=== PATIENT | female | born 1980 | race Hispanic/Latino ===

== ENCOUNTER 2016-06-28 22:11 | Emergency (ER) | payer SELFPAY ==
[2016-06-28] MEDS ORDERED: Lorazepam 2 MG/ML VIAL ONE (22:22)
[2016-06-28 22:43] LABS: #Basophils 0.1 thou/uL (0.0-0.2); #Eosinphils 0.1 thou/uL (0.0-0.7); #Lymphocytes 1.9 thou/uL (1.20-3.40); #Monocytes 0.6 thou/uL (0.11-0.59); #Neutrophils 8.4 thou/uL (1.40-6.50); %Basophils 1.3 % (0.0-1.0); %Eosinophils 1.3 % (0.0-10.0); %Monocytes 5.2 % (0.0-10.0); Hematocrit 36.8 % (36.0-47.0); Mean Platelet Volume 7.8 fL (7.4-10.4); Red Blood Cell (RBC) Count 4.11 mill/uL (4.20-5.40); White Blood Cell (WBC) Count 11.1 thou/uL (4.8-10.8)
[2016-06-28 22:55] LABS: ALT (SGPT) 8 U/L (0-55); AST (SGOT) 10 U/L (5-34); Alkaline Phosphatase 74 U/L (40-150); Anion Gap 12 mmol/L (10-20); BUN (Urea Nitrogen) 14 mg/dL (7.0-18.7); Bilirubin, Total 0.4 mg/dL (0.2-1.2); Calc. Creatinine Clearance 0 mL/min (70-130); Calcium 9.4 mg/dL (7.8-10.44); Carbon Dioxide 19 mmol/L (22-29); Chloride 112 mmol/L (98-107); Estimated GFR-MDRD Greater than 90; Globulin 3.1 g/dL (2.4-3.5)
[2016-06-28 23:01] LABS: Troponin I Less than 0.010 ng/mL (< 0.028)
--- NOTE | 2016-06-28 23:22 | PICIS ---
[facility] EMERGENCY RECORD ADMIN MERGE: Ambulance WedJun 28, 2016 22:00. (23:26 BGAL) TRIAGE ([place] Jun 28, 2016 22:16 EMAT) PATIENT: NAME: Cielo Chambers, AGE: 35, GENDER: female, : Wed1980, TIME OF GREET: [place] Jun 28, 2016 22:11, PREFERRED LANGUAGE: Romanian, ETHNICITY: or , ECODE BILLING MAP: [facility], Zip Code: [address], PHONE: , , , PERSON ID: [id number], PAYMENT: [employer] Self Pay, PCP: COMPA Alvarado Kimberly. ([place] Jun 28, 2016 22:16 EMAT) KG WEIGHT: 54.4 (est.). (22:38 EMAT) COMPLAINT: anxiety, chest pain. (22:38 EMAT) ADMISSION: URGENCY: 3 Urgent, ADMISSION SOURCE: Home, TRANSPORT: AMBULANCE - [facility], BED: TRIAGE. ([place] Jun 28, 2016 22:16 EMAT) ASSESSMENT: Assessment: "panic attack" per EMS as relayed by daughter, Additional Triage notes: EMS gave 1 spray nitro, 324 mg ASA, 2mg versed, CHANNEL LIP WETTER. (22:20 EMAT) PAIN: Patient complains of pain described as, Location mid chest, Pain is intermittent. (22:20 EMAT) SIRS SCORING: Heart Rate 55-109 (0), Temp range 96.8-101.1 (0), respiratory rate 12-24 (0), respiratory rate 25-34 (1), Mental Status altered: no (0), Total SIRS Score 0, Infection or Suspected Infection: No. (22:20 EMAT) TRIAGE SCREENING: Patient denies suicidal ideation, Patient denies presence of domestic violence. (22:38 EMAT) LMP: Last menstrual period: 06/07/2016. (22:39 EMAT) PROVIDERS: TRIAGE NURSE: Brett Lowry RN. ([place] Jun 28, 2016 22:16 EMAT) VITAL SIGNS: BP 125/62, Pulse 89, Resp 28, (Non-Labored), Temp 98.1, (Oral), Pain 5, O2 Sat 99, on Room Air, Time 06/28/2016 22:13. (22:13 EMAT) PREVIOUS VISIT ALLERGIES: No Known Drug Allergies. (WedJun 28, 2016 22:16 EMAT) No Known Drug Allergies. (22:20 EMAT) KNOWN ALLERGIES No Known Drug Allergies CURRENT MEDICATIONS (22:16 EMAT) None VITAL SIGNS VITAL SIGNS: BP: 125/62, Pulse: 89, Resp: 28 (Non-Labored), Temp: 98.1 (Oral), Pain: 5, O2 sat: 99 on Room Air, Time: 06/28/2016 22:13. (22:13 EMAT) BP: 136/83, Pulse: 96, Resp: 30, Pain: 2, O2 sat: 99 on Room Air, Time: 06/28/2016 22:36. (22:36 EMAT) NURSING ASSESSMENT: FOCUSED (22:32 EMAT) &a-1R&a+25V*p+0X*[id number]*c202B*c15G*c2P*p-0X&a-25V&a+1R Name: Cielo Chambers : 1980 F35 MedRec: [id number] AcctNum: [id number] Prepared: WedJun 29, 2016 00:01 by Interface Page 1 of 7 pMD [facility] EMERGENCY RECORD CONSTITUTIONAL: Patient arrives, via stretcher, via [facility], History obtained from, Emergency Medical Services, machine shop specialist: ANDREIA Carnes, Patient appears, anxious, Patient cooperative, Patient alert, Oriented to person, place and time, Skin warm, Skin dry, Skin normal in color, Mucous membranes pink, Mucous membranes moist, Patient is well-groomed, Patient complains of Anxiety. PAIN: aching pain, mid chest, Pain exacerbated by, Hyperventilation. EYES: Focused eye assessment finding include pupils equally round and reactive to light. NEURO: Focused neuro assessment findings include patient alert, cooperative, No facial droop noted, Speech coherent, No loss of consciousness. GCS: Eye opening: (4) - Spontaneous, Verbal: (5) - Oriented/conversive, Motor: (6) - Obeys commands/Spontaneous, GCS Total: 15. RESPIRATORY: Focused respiratory assessment findings include breath sounds clear, Notes: hyperventilating. ABDOMEN: Focused abdominal assessment findings include abdomen soft. GENITOURINARY FEMALE: Notes: deferred. MUSCULOSKELETAL: Focused musculoskeletal assessment findings include normal range of motion. LACERATION: Focused laceration assessment not applicable. NOTES: Emotional support needed and given. SAFETY: Side rails up, Cart/Stretcher in lowest position, Family at bedside, Call light within reach, Hospital ID band on. NURSING PROCEDURE: DISCHARGE NOTE (23:57 MVIL) DISCHARGE: Patient discharged to home, ambulating with assistance, driving self, accompanied by other family member, Summary of Care printed/ provided, Patient requested and was provided an electronic copy of Discharge Instructions, Transition record given to patient, Discharge instructions given to patient, Above person(s) verbalized understanding of discharge instructions and follow-up care. BELONGINGS: Belongings and valuables with patient at time of discharge include:. ORDER DETAILS Order Name: Cardiac Profile w/CKMB & Troponin - I, Status: Active, Time: 22:17 06/28/2016, User: ARIELLA, - Ordered for: MD Ashley Jason, - Entered by: MD Ashley Jason - Sun Jun 28, 2016 22:17, - Quantity: 1, Order Name: CBC with Differential, Status: Active, Time: 22:17 06/28/2016, User: ARIELLA, - Ordered for: MD Ashley Jason, &a-1R&a+25V*p+0X*i0633U*c202B*c15G*c2P*p-0X&a-25V&a+1R Name: Cielo Chambers : 1980 F35 MedRec: [id number] AcctNum: [id number] Prepared: WedJun 29, 2016 00:01 by Interface Page 2 of 7 pMD [facility] EMERGENCY RECORD - Entered by: MD Ashley Jason - Sun Jun 28, 2016 22:17, - Quantity: 1, Order Name: Comprehensive Metabolic Panel, Status: Active, Time: 22:17 06/28/2016, User: ARIELLA, - Ordered for: MD Ashley Jason, - Entered by: MD Ashley Jason - Sun Jun 28, 2016 22:17, - Quantity: 1, Order Name: EKG 12 Lead in Emergency Room, Status: Active, Time: 22:17 06/28/2016, User: ARIELLA, - Ordered for: MD Ashley Jason, - Entered by: MD Ashley Jason - Sun Jun 28, 2016 22:17, - Quantity: 1, Order Name: XR Chest 1 View Portable, Status: Active, Time: 22:17 06/28/2016, User: ARIELLA, - Ordered for: MD Ashley Jason, - Entered by: MD Ashley Jason - Sun Jun 28, 2016 22:17, - Quantity: 1. MEDICATION ADMINISTRATION SUMMARY Drug Name: Ativan injection, Dose Ordered: 0.5 mg, Route: IV Push, Status: Given, Time: 22:28 06/28/2016, Drug Name: *sodium chloride 0.9 % intravenous, Dose Ordered: 1 L, Route: IV Fluid Infusion, Status: Given, Time: 22:27 06/28/2016, *Additional information available in notes, Detailed record available in Medication Service section. MEDICATION SERVICE Ativan injection: Order: Ativan injection (lorazepam) - Dose: 0.5 mg : IV Push Ordered by: Yovany Ashley MD Entered by: MD Britni Arreola Jun 28, 2016 22:19 , Acknowledged by: ANDREIA Diaz Jun 28, 2016 22:27 Documented as given by: Brett Lowry RN [place] Jun 28, 2016 22:28 Patient, Medication, Dose, Route and Time verified prior to administration. Amount given: 0.5 mg, IV SITE #1 IVP, initial medication, Slowly, Slightly drowsey, easily aroused-acceptable, Catheter placement confirmed via flush prior to administration, IV site without signs or symptoms of infiltration during medication administration, No swelling during administration, No drainage during administration, IV flushed after administration, Correct patient, time, route, dose and medication confirmed prior to administration, Patient advised of actions and side-effects prior to administration, Allergies confirmed and medications reviewed prior to administration, Patient in position of comfort, Side rails up, Cart in lowest position, Family at bedside. : Follow Up : Response assessment performed, No signs or symptoms of allergic reaction noted, Decreased pain, Decreased symptoms, Decreased blood pressure, &a-1R&a+25V*p+0X*q6989L*c202B*c15G*c2P*p-0X&a-25V&a+1R Name: Cielo Chambers : 1980 F35 MedRec: [id number] AcctNum: [id number] Prepared: WedJun 29, 2016 00:01 by Interface Page 3 of 7 pMD [facility] EMERGENCY RECORD Decreased heart rate, _IV SITE #1:_. (23:00 MVIL) sodium chloride 0.9 % intravenous: Order: sodium chloride 0.9 % intravenous (0.9 % sodium chloride) - Dose: 1 L : IV Fluid Infusion Notes: (Bolus) Ordered by: Yovany Ashley MD Entered by: Yovany Ashley MD [place] Jun 28, 2016 22:20 , Acknowledged by: Brett Lowry RN [place] Jun 28, 2016 22:27 Documented as given by: Brett Lowry RN [place] Jun 28, 2016 22:27 Patient, Medication, Dose, Route and Time verified prior to administration. Amount given: 1000 ml, IV SITE #1 IV fluids established for hydration, IV SITE #1 into left antecubital, IV SITE #1 1st bag hung, amount 1 Liter hung, IV SITE #1 bolus of 1000 ml established, via primary tubing, Awake and alert- acceptable, Catheter placement confirmed via flush prior to administration, IV site without signs or symptoms of infiltration during medication administration, No swelling during administration, No drainage during administration, IV flushed after administration, Correct patient, time, route, dose and medication confirmed prior to administration, Patient advised of actions and side-effects prior to administration, Allergies confirmed and medications reviewed prior to administration, Patient in position of comfort, Side rails up, Cart in lowest position, Family at bedside. : Follow Up : Response assessment performed, No signs or symptoms of allergic reaction noted, Decreased symptoms, Decreased heart rate, Site inspection shows, No swelling at administration site, No drainage at administration site, No bleeding at site, No bruising noted at site, _IV SITE #1:_, IV fluid infusion discontinued, on WedJun 28, 2016 23:24, ., Total amount infused: 1000MLS, IV Discontinued with catheter intact. (23:24 MVIL) HPI ANXIETY (22:20 [facility]) CHIEF COMPLAINT: Patient presents for evaluation of anxiety, Patient presents for evaluation of shortness of breath, Patient presents for evaluation of chest pain. HISTORIAN: History provided by patient, 35F presents with complaints of anxiety, chest pain, and shortness of breath that have been present since 9pm. Patient states she has had multiple similar episodes in the past that she has not sought medical care for. Denies headache, fever, or chills. LOCATION: Symptoms are generalized. QUALITY: Patient is alert and oriented to person, place and time, [place] coma score is 15. TIME COURSE: Gradual onset of symptoms, There has been no change in the patient's symptoms over time. ROS CONSTITUTIONAL: Negative constitutional review of systems, Historian denies chills, denies fever. (22:21 JJA) &a-1R&a+25V*p+0X*w1289L*c202B*c15G*c2P*p-0X&a-25V&a+1R Name: Cielo Chambers : 1980 F35 MedRec: [id number] AcctNum: [id number] Prepared: WedJun 29, 2016 00:01 by Interface Page 4 of 7 pMD [facility] EMERGENCY RECORD EYES: Negative eye review of systems, Historian denies eye pain, denies vision changes. (22:21 JJAC) ENT: Negative ears, nose, throat review of systems, Historian denies rhinorrhea, denies sore throat, denies voice changes. (22:21 JJAC) CARDIOVASCULAR: Historian reports chest pain. (22:21 JJAC) RESPIRATORY: Historian reports shortness of breath. (22:21 JJAC) GI: Negative gastrointestinal review of systems, Historian denies abdominal pain, denies constipation, denies diarrhea, denies nausea, denies vomiting. (22:21 JJAC) GENITOURINARY FEMALE: Negative genitourinary review of systems, Historian denies dysuria, denies frequency. (22:21 JJAC) MUSCULOSKELETAL: Negative musculoskeletal review of systems, Historian denies back pain, denies fall, denies injury. (22:21 JJAC) SKIN: Negative skin review of systems, Historian denies rash, denies skin changes. (22:21 JJAC) NEUROLOGIC: Negative neurologic review of systems, Historian denies headache, denies mental status changes, denies paralysis, denies paresthesias, denies sensory changes. (22:21 JJAC) HEMO/LYMPHATIC: Normal hematologic/lymphatic system review, Historian denies abnormal blood clotting. (22:21 JJAC) ALLERGIC/IMMUNOLOGIC: Normal allergy/immunologic system review, Historian denies frequent infections. (22:21 JJAC) PSYCHIATRIC: Historian reports anxiety. (22:22 JJAC) PAST MEDICAL HISTORY (22:20 EMAT) MEDICAL HISTORY: Notes: ANEMIA, Flu vaccine not up to date, Tetanus not up to date, Pneumococcal vaccine not up to date. reviewed 06/28/16. FEMALE SURGICAL HISTORY: Patient has no surgical history. reviewed 06/28/16. SOCIAL HISTORY: Patient denies alcohol use, Patient denies drug use, Patient has no smoking history. reviewed 06/28/16. PHYSICAL EXAM (22:21 JJAC) CONSTITUTIONAL: Vital signs reviewed, Patient afebrile, Pulse normal, Blood pressure normal, Respiratory rate, increased, Patient appears non toxic, Patient appears pain free, Patient alert and oriented to person, place and time. HEAD: Head exam normal, Head exam included findings of head atraumatic, normocephalic. EYES: Eye exam normal, Eye exam included findings of eyelids normal to inspection, Pupils equally round and reactive to light, Extraocular muscles intact, no nystagmus. ENT: ENT exam normal, Ear exam normal, external ear normal, tympanic membranes normal, no bleeding, Pharynx exam normal, Uvula exam normal, Tonsil exam normal, Mouth exam normal, mucous membranes moist, teeth normal. &a-1R&a+25V*p+0X*p4566J*c202B*c15G*c2P*p-0X&a-25V&a+1R Name: Cielo Chambers : 1980 F35 MedRec: [id number] AcctNum: [id number] Prepared: WedJun 29, 2016 00:01 by Interface Page 5 of 7 pMD [facility] EMERGENCY RECORD NECK: Neck exam normal, Neck exam included findings of normal range of motion, Trachea midline, no meningeal signs, no cervical adenopathy, no tenderness. RESPIRATORY CHEST: Respiratory and chest exam normal, Respiratory exam included findings of no respiratory distress, Breath sounds clear. CARDIOVASCULAR: Cardiovascular assessment normal, Cardiovascular exam included findings of heart rate regular rate and rhythm, Heart sounds normal. ABDOMEN FEMALE: Abdominal exam included findings of abdomen nontender, Bowel sounds normal, no distension, no mass, no pulsatile masses, no peritoneal signs, no rigidity, no guarding, no rebound, Rovsing's sign absent. BACK: Back exam normal, Back exam included findings of normal inspection, range of motion normal, no tenderness. UPPER EXTREMITY: Upper extremity exam normal, Upper extremity exam included findings of inspection normal, Range of motion normal, Motor strength normal, Sensation intact, Radial pulse normal. LOWER EXTREMITY: Lower extremity exam normal, Lower extremity exam included findings of inspection normal, Range of motion normal, Motor strength normal, Sensation intact, Posterior tibial pulse normal, Pedal pulse normal. NEURO: Neuro exam normal, Neuro exam findings include patient oriented to person, place and time, Speech normal, Gait normal, Cranial nerves intact, no focal motor deficits, no focal sensory deficits. SKIN: Skin exam normal, Skin exam included findings of skin warm, dry, and normal in color, no rash. PSYCHIATRIC: Psychiatric exam included findings of patient oriented to person place and time, Affect, agitated, anxious, anxious, hyperventilating. EVENTS TRANSFER: Triage to Emergency Triage. ([place] Jun 28, 2016 22:16 EMAT) Emergency Triage to Emergency Room -04. (22:16 EMAT) Removed from Emergency Emergency Room -04. (23:58 MVIL) DOCTOR NOTES (23:07 [facility]) TEXT: Patient presented with findings consistent with panic/anxiety attack. Her spectrum of symptoms prompted workup for ACS or respiratory etiology, but lab and EKG findings have been reassuring. I believe her symptoms are all related to anxiety and as they are improving, she is appropriate for discharge home and outpatient management. PATIENT STATUS: Patient has improved since arrival to emergency department. PATIENT PLAN: The patient will be discharged. DATA REVIEWED: Lab data reviewed, Xray data reviewed, Reviewed &a-1R&a+25V*p+0X*j0655O*c202B*c15G*c2P*p-0X&a-25V&a+1R Name: Cielo Chambers : 1980 F35 MedRec: [id number] AcctNum: [id number] Prepared: WedJun 29, 2016 00:01 by Interface Page 6 of 7 pMD [facility] EMERGENCY RECORD EKG. PROBLEM LIST No recorded problems DIAGNOSIS (23:05 JJA) FINAL: PRIMARY: Anxiety. DISPOSITION PATIENT: Disposition Type: Discharge, Disposition: *Discharge Home. (23:05 JJA) Patient left the department. (23:58 MVIL) [facility] DISCHARGE: ANXIETY REACTION. FO[facility]UP[facility] [address] [address], . SPECIAL: Slow down your breathing. Get some rest. PRESCRIPTION No recorded prescriptions IMAGING *DISCHARGE INSTRUCTIONS RECEIPT: Image captured from scanner. (23:18 MVIL) *SUPPLY CHARGE SHEET: Image captured from scanner. (23:20 MVIL) *EKG: Image captured from scanner. (23:22 MVIL) ADMIN DIGITAL SIGNATURE: MD Ashley Jason. (23:09 [facility] [place]: BGAL=ANDREIA Hills, Veena EMAT=ANDREIA Lowry, Brett JJAC=MD Ashley Jason MVIL=ANDREIA Austin, Reyna &a-1R&a+25V*p+0X*j0839T*c202B*c15G*c2P*p-0X&a-25V&a+1R Name: Cielo Chambers : 1980 F35 MedRec: [id number] AcctNum: [id number] Prepared: WedJun 29, 2016 00:01 by Interface Page 7 of 7 pMD MTDD
--- NOTE | 2016-06-28 23:22 | ERRECORD ---
[facility] EMERGENCY RECORD ADMIN (23:26 BGAL) MERGE: Ambulance Sun Jun 28, 2016 22:00. HPI ANXIETY (22:20 JJAC) CHIEF COMPLAINT: Patient presents for evaluation of anxiety, Patient presents for evaluation of shortness of breath, Patient presents for evaluation of chest pain. HISTORIAN: History provided by patient, 35F presents with complaints of anxiety, chest pain, and shortness of breath that have been present since 9pm. Patient states she has had multiple similar episodes in the past that she has not sought medical care for. Denies headache, fever, or chills. LOCATION: Symptoms are generalized. QUALITY: Patient is alert and oriented to person, place and time, [place] coma score is 15. TIME COURSE: Gradual onset of symptoms, There has been no change in the patient's symptoms over time. ROS CONSTITUTIONAL: Negative constitutional review of systems, Historian denies chills, denies fever. (22:21 JJAC) EYES: Negative eye review of systems, Historian denies eye pain, denies vision changes. (22:21 JJAC) ENT: Negative ears, nose, throat review of systems, Historian denies rhinorrhea, denies sore throat, denies voice changes. (22:21 JJAC) CARDIOVASCULAR: Historian reports chest pain. (22:21 JJAC) RESPIRATORY: Historian reports shortness of breath. (22:21 JJAC) GI: Negative gastrointestinal review of systems, Historian denies abdominal pain, denies constipation, denies diarrhea, denies nausea, denies vomiting. (22:21 JJAC) GENITOURINARY FEMALE: Negative genitourinary review of systems, Historian denies dysuria, denies frequency. (22:21 JJAC) MUSCULOSKELETAL: Negative musculoskeletal review of systems, Historian denies back pain, denies fall, denies injury. (22:21 JJAC) SKIN: Negative skin review of systems, Historian denies rash, denies skin changes. (22:21 JJAC) NEUROLOGIC: Negative neurologic review of systems, Historian denies headache, denies mental status changes, denies paralysis, denies paresthesias, denies sensory changes. (22:21 JJAC) HEMO/LYMPHATIC: Normal hematologic/lymphatic system review, Historian denies abnormal blood clotting. (22:21 JJAC) ALLERGIC/IMMUNOLOGIC: Normal allergy/immunologic system review, Historian denies frequent infections. (22:21 JJA) PSYCHIATRIC: Historian reports anxiety. (22:22 JJA) PAST MEDICAL HISTORY (22:20 EMAT) MEDICAL HISTORY: Notes: ANEMIA, Flu vaccine not up to date, &a-1R&a+25V*p+0X*[id number]*c202B*c15G*c2P*p-0X&a-25V&a+1R Name: Cielo Chambers : 1980 F35 MedRec: [id number] AcctNum: [id number] Prepared: WedJun 29, 2016 00:01 by Interface Page 1 of 4 pMD [facility] EMERGENCY RECORD Tetanus not up to date, Pneumococcal vaccine not up to date. reviewed 06/28/16. FEMALE SURGICAL HISTORY: Patient has no surgical history. reviewed 06/28/16. SOCIAL HISTORY: Patient denies alcohol use, Patient denies drug use, Patient has no smoking history. reviewed 06/28/16. KNOWN ALLERGIES No Known Drug Allergies CURRENT MEDICATIONS (22:16 EMAT) None VITAL SIGNS VITAL SIGNS: BP: 125/62, Pulse: 89, Resp: 28 (Non-Labored), Temp: 98.1 (Oral), Pain: 5, O2 sat: 99 on Room Air, Time: 06/28/2016 22:13. (22:13 EMAT) BP: 136/83, Pulse: 96, Resp: 30, Pain: 2, O2 sat: 99 on Room Air, Time: 06/28/2016 22:36. (22:36 EMAT) PHYSICAL EXAM (22:21 JA) CONSTITUTIONAL: Vital signs reviewed, Patient afebrile, Pulse normal, Blood pressure normal, Respiratory rate, increased, Patient appears non toxic, Patient appears pain free, Patient alert and oriented to person, place and time. HEAD: Head exam normal, Head exam included findings of head atraumatic, normocephalic. EYES: Eye exam normal, Eye exam included findings of eyelids normal to inspection, Pupils equally round and reactive to light, Extraocular muscles intact, no nystagmus. ENT: ENT exam normal, Ear exam normal, external ear normal, tympanic membranes normal, no bleeding, Pharynx exam normal, Uvula exam normal, Tonsil exam normal, Mouth exam normal, mucous membranes moist, teeth normal. NECK: Neck exam normal, Neck exam included findings of normal range of motion, Trachea midline, no meningeal signs, no cervical adenopathy, no tenderness. RESPIRATORY CHEST: Respiratory and chest exam normal, Respiratory exam included findings of no respiratory distress, Breath sounds clear. CARDIOVASCULAR: Cardiovascular assessment normal, Cardiovascular exam included findings of heart rate regular rate and rhythm, Heart sounds normal. ABDOMEN FEMALE: Abdominal exam included findings of abdomen nontender, Bowel sounds normal, no distension, no mass, no pulsatile masses, no peritoneal signs, no rigidity, no guarding, no rebound, Rovsing's sign absent. BACK: Back exam normal, Back exam included findings of normal inspection, range of motion normal, no tenderness. UPPER EXTREMITY: Upper extremity exam normal, Upper extremity &a-1R&a+25V*p+0X*[id number]*c202B*c15G*c2P*p-0X&a-25V&a+1R Name: Cielo Chambers : 1980 F35 MedRec: [id number] AcctNum: [id number] Prepared: WedJun 29, 2016 00:01 by Interface Page 2 of 4 D [facility] EMERGENCY RECORD exam included findings of inspection normal, Range of motion normal, Motor strength normal, Sensation intact, Radial pulse normal. LOWER EXTREMITY: Lower extremity exam normal, Lower extremity exam included findings of inspection normal, Range of motion normal, Motor strength normal, Sensation intact, Posterior tibial pulse normal, Pedal pulse normal. NEURO: Neuro exam normal, Neuro exam findings include patient oriented to person, place and time, Speech normal, Gait normal, Cranial nerves intact, no focal motor deficits, no focal sensory deficits. SKIN: Skin exam normal, Skin exam included findings of skin warm, dry, and normal in color, no rash. PSYCHIATRIC: Psychiatric exam included findings of patient oriented to person place and time, Affect, agitated, anxious, anxious, hyperventilating. MEDICATION ADMINISTRATION SUMMARY Drug Name: Ativan injection, Dose Ordered: 0.5 mg, Route: IV Push, Status: Given, Time: 22:28 06/28/2016, Drug Name: *sodium chloride 0.9 % intravenous, Dose Ordered: 1 L, Route: IV Fluid Infusion, Status: Given, Time: 22:27 06/28/2016, *Additional information available in notes, Detailed record available in Medication Service section. DOCTOR NOTES (23:07 [facility]) TEXT: Patient presented with findings consistent with panic/anxiety attack. Her spectrum of symptoms prompted workup for ACS or respiratory etiology, but lab and EKG findings have been reassuring. I believe her symptoms are all related to anxiety and as they are improving, she is appropriate for discharge home and outpatient management. PATIENT STATUS: Patient has improved since arrival to emergency department. PATIENT PLAN: The patient will be discharged. DATA REVIEWED: Lab data reviewed, Xray data reviewed, Reviewed EKG. PROBLEM LIST No recorded problems DIAGNOSIS (23:05 [facility]) FINAL: PRIMARY: Anxiety. PRESCRIPTION No recorded prescriptions DISPOSITION PATIENT: Disposition Type: Discharge, Disposition: *Discharge &a-1R&a+25V*p+0X*[id number]*c202B*c15G*c2P*p-0X&a-25V&a+1R Name: Cielo Chambers : 1980 5 MedRec: [id number] AcctNum: [id number] Prepared: WedJun 29, 2016 00:01 by Interface Page 3 of 4 pMD [facility] EMERGENCY RECORD [facility]. (23:58 MVIL) [place]: BGAL=ANDREIA Hills, Veena SAHU=ANDREIA Lowry, Brett [facility] Gabi, Yovany MVIL=ANDREIA Austin, eRyna &a-1R&a+25V*p+0X*[id number]*c202B*c15G*c2P*p-0X&a-25V&a+1R Name: Cielo Chambers : 1980 F35 MedRec: [id number] AcctNum: [id number] Prepared: WedJun 29, 2016 00:01 by Interface Page 4 of 4 pMD MTDD
--- NOTE | 2016-06-29 07:09 | RAD ---
PORTABLE CHEST 06/28/2016 An AP portable film at 2218 hours shows a normal size heart and clear lungs. No infiltrate or effus ion was seen. There is no vascular congestion or edema. The trachea is midline, and the mediastinu m appears normal. IMPRESSION: No acute thoracic findings. POS: HOME
== END 2016-06-28 23:10 | disposition home or self-care (01) ==
LOC: BURERS 22:11
DX: F41.9 Anxiety disorder, unspecified (principal)
CPT/HCPCS: 36415; 71010; 80053; 82553; 84484; 85025; 93005; 96361; 96374; J2060